=== PATIENT | male | born 1965 | race African-American/Black ===

== ENCOUNTER 2017-03-02 12:27 | Day surgery (SDC) | payer OTHER ==
[~2017-03-02] VITALS: Ht 182.9 cm; Wt 108.0 kg
[~2017-03-02 12:27] MED LIST: AMLODIPINE BESY10 MG PO; JANUMET 50-5001 EACH; LOSARTAN-HCTZ1 EAC1 PO; METFORMIN HCL500 M3 PO
[2017-03-02] MEDS ORDERED: VICTOZA 2-0.6 MG/0.1 SUB-Q (13:08)
[2017-03-02] MEDS ORDERED: CINNAMON500 MG PO (13:08)
[2017-03-02] MEDS ORDERED: ADVIL200 MG PO (13:08)
[2017-03-02] MEDS ORDERED: ADULT LOW DOSE81 MG PO (13:08)
[2017-03-02] MEDS ORDERED: FISH OIL 1,0001 EAC6 PO (13:10)
[2017-03-02] MEDS ORDERED: VITAMIN D2000 UNIT PO (13:10)
--- NOTE | 2017-03-02 16:33 | NUR ---
03/02/17 1633 Lillie Das REPORT FROM [facility].
--- NOTE | 2017-03-06 10:36 | OR ---
[facility] [address], [place] [address] Signed DATE OF PROCEDURE: 03/02/17 PREOPERATIVE DIAGNOSES Colon screening. Left testicular pain. POSTOPERATIVE DIAGNOSES Normal colon to cecum. Superior pole of left testicle with possible spermatocele. No evidence of testicular neoplasm proper. PROCEDURE Total colonoscopy to cecum. Examination of scrotum. SURGEON: Dafne Holder M.D. ANESTHESIA: Intravenous sedation, Fentanyl 150 mcg, Versed 8 mg. INDICATION This 51-year-old black man is a patient of Dr. Carlos Adams. He is referred for colon screening based on his age. He has no symptoms related to the colon and no family history of colon cancer. The patient also says that he has been having left-sided testicular pain for which he asks for examination. He understands the risks of colonoscopy as well as limitations of examination of the scrotum at this time and wished to proceed. Findings scrotal examination showed a relatively small right testicle and normal cord structures. The left testicle is slightly larger and it had no sign of neoplasm. There reji eared to be a small spermatocele in the superior pole of the epididymis and cord structures themselves were normal, though there was some hypervascularity, but not a varicocele proper. As regard to colon, it was adequately prepped, but a fair amount of irrigation was required. Complete colonoscopy was undertaken of the cecum. There was no sign of polyps, diverticular formation, colitis, or cancer. DESCRIPTION OF PROCEDURE The patient brought to the endoscopy suite and placed in lateral decubitus position. Given intravenous sedation to the point of slurred speech and nystagmus. Digital rectal examination was normal. An Olympus video colonoscope was passed in the rectum and manipulated throughout the Electronically Signed By: DFANE HOLDER MD 03/06/17 1036 PATIENT NAME: ASA SANDS OPERATIVE REPORT DATE OF : 61 PHYSICIAN: DAFNE HOLDER MD REPORT #: [id number] REPORT IS CONFIDENTIAL AND NOT TO BE RELEASED WITHOUT AUTHORIZATION [facility] [address], [place] [address] Signed colon ultimately intubating the cecum itself. Irrigation was required to allow for adequate visualization. Once the cecum was well visualized including the appendiceal orifice, the scope was carefully withdrawn and examination in a to and fro mechanism allowed for good examination throughout. The entire colon w as normal. Retroflexed view in the rectum did demonstrate a hypertrophied anal papilla, but no sign of hemorrhoids or other problem. The scope was removed. The patient had complaints of some left testicular pain and wished examination. A scrotal examination was undertaken confirming only a small superior pole left spermatocele. The patient was taken to recovery room in good condition. CONCLUDING DIAGNOSIS Small spermatocele of left epididymal area. If pain persists despite use of nonsteroidals, he will see us back and consideration will be made for excision. Colon normal, would recommend repeat colonoscopy in 10 years, sooner if clinically indicated. He will return to the ongoing care of Dr. Adams. MD AUDREY Russ/Dennisl /[id number] cc: Carlos Adams MD Electronically Signed By: DAFNE HOLDER MD 03/06/17 1036 PATIENT NAME: ASA SANDS OPERATIVE REPORT DATE OF : 61 PHYSICIAN: DAFNE HOLDER MD REPORT #: [id number] REPORT IS CONFIDENTIAL AND NOT TO BE RELEASED WITHOUT AUTHORIZATION
== END 2017-03-02 17:13 | disposition home or self-care (01) ==
LOC: OPS 12:27 → DS 14:00 → OPS 14:00
PROVIDERS: Surgery
PROC: 0DJD8ZZ Inspection of Lower Intestinal Tract, Via Natural or Artificial Opening Endoscopic (ICD-10-PCS; 2017-03-02)
PROC: 0VJD0ZZ Inspection of Testis, Open Approach (ICD-10-PCS; principal; 2017-03-02 14:00)
DX: Z12.11 Encounter for screening for malignant neoplasm of colon (principal); N50.812 Left testicular pain; N43.40 Spermatocele of epididymis, unspecified; E11.9 Type 2 diabetes mellitus without complications; I10 Essential (primary) hypertension; Z90.89 Acquired absence of other organs
CPT/HCPCS: 99152; 99153; J2250; J3010; J7120

== ENCOUNTER 2021-03-03 15:46 | Emergency (ER) | payer BC ==
[~2021-03-03] VITALS: Ht 182.9 cm; Wt 110.7 kg
[~2021-03-03 15:46] MED LIST changes: +ADULT LOW DOSE81 MG PO; +ADVIL200 MG PO; +CINNAMON500 MG PO; +FISH OIL 1,0001 EAC6 PO; +VICTOZA 2-0.6 MG/0.1 SUB-Q; +VITAMIN D2000 UNIT PO
[2021-03-03] MEDS ORDERED: GLIPIZIDE10 MG PO (18:22)
[2021-03-03] MEDS ORDERED: ELIQUIS5 M1 PO (19:39)
== END 2021-03-03 20:02 | disposition home or self-care (01) ==
LOC: ED 15:46
DX: I82.402 Acute embolism and thrombosis of unspecified deep veins of left lower extremity (principal); Z79.84 Long term (current) use of oral hypoglycemic drugs
CPT/HCPCS: 80053; 85025; 85610; 85730; 99283